=== PATIENT | male | born 1965 | race Caucasian/White ===

== ENCOUNTER 2019-02-02 17:22 | Inpatient (IN) | payer OTHER ==
[~2019-02-02] VITALS: Ht 170.2 cm; Wt 71.2 kg
[2019-02-02 18:24] LABS: BASOPHIL % 0.1 % (0-2); PLATELET COUNT 343 x10^3mcL (130-400); RED CELL DISTRIBUTION WIDTH 13.1 % (11.5-14.5)
[2019-02-02 18:29] LABS: CARBON DIOXIDE 36.2 mmol/L (21-32); CHLORIDE SERUM 97 mmol/L (98-107); CREATININE SERUM 1.2 mg/dL (0.7-1.3); GFR1 > 60 mL/min; GLUCOSE SERUM 192 mg/dL (74-106); POTASSIUM SERUM 3.3 mmol/L (3.5-5.1); SODIUM SERUM 137 mmol/L (136-145)
[2019-02-02 18:34] LABS: ALKALINE PHOSPHATASE 107 U/L (46-116); ALT/SGPT 36 U/L (16-63); AST/SGOT 21 U/L (15-37); BILIRUBIN TOTAL 0.57 mg/dL (0.20-1.00); LIPASE 66 IU/L (73-393)
[2019-02-02 18:37] LABS: OSMOLALITY SERUM 295 mOsm/kg (278-298)
[2019-02-02 18:39] LABS: microscopic required? YES; urine erythrocyte 2+ (NEGATIVE)
[2019-02-02] MEDS ORDERED: METFORMIN HCL500 MG (21:19)
[2019-02-02] MEDS ORDERED: LISINOPRIL10 MG PO (21:19)
[2019-02-02] MEDS ORDERED: NOR5 PO (21:20)
[2019-02-02] MEDS ORDERED: GAS RELIEF80 MG PO (21:20)
[2019-02-02] MEDS ORDERED: LIPI20 PO (21:20)
[2019-02-02 22:03] VITALS: BP 123/64
[2019-02-02 22:10] VITALS: Ht 170.2 cm; Wt 71.2 kg
[2019-02-02 22:23] LABS: MAGNESIUM 1.9 mg/dL (1.8-2.4); PHOSPHOROUS 4.2 mg/dL (2.5-4.9)
[2019-02-02 22:24] LABS: CHOLESTEROL/HDL RATIO 3.3
[2019-02-03 06:11] VITALS: BP 126/73
[2019-02-03 06:19] LABS: PLATELET COUNT 288 x10^3mcL (130-400); RED CELL DISTRIBUTION WIDTH 13.4 % (11.5-14.5)
[2019-02-03 07:00] LABS: CARBON DIOXIDE 30.2 mmol/L (21-32); CHLORIDE SERUM 105 mmol/L (98-107); GFR1 > 60 mL/min; GLUCOSE SERUM 115 mg/dL (74-106); MAGNESIUM 1.9 mg/dL (1.8-2.4); PHOSPHOROUS 3.4 mg/dL (2.5-4.9); POTASSIUM SERUM 3.8 mmol/L (3.5-5.1); SODIUM SERUM 142 mmol/L (136-145)
[2019-02-03 07:01] LABS: BASOPHIL % 0 % (0-2)
[2019-02-03 08:28] VITALS: BP 128/70
[2019-02-03 12:33] VITALS: BP 128/68
[2019-02-03 16:04] VITALS: BP 118/72
[2019-02-03 20:46] VITALS: BP 105/62
[2019-02-04 06:00] VITALS: BP 121/66
[2019-02-04 06:36] LABS: CALCIUM 8.3 mg/dL (8.5-10.1); CARBON DIOXIDE 27.7 mmol/L (21-32); CHLORIDE SERUM 105 mmol/L (98-107); CREATININE SERUM 0.9 mg/dL (0.7-1.3); GFR1 > 60 mL/min; GLUCOSE SERUM 94 mg/dL (74-106); MAGNESIUM 1.9 mg/dL (1.8-2.4); PHOSPHOROUS 2.3 mg/dL (2.5-4.9); POTASSIUM SERUM 3.6 mmol/L (3.5-5.1); SODIUM SERUM 141 mmol/L (136-145)
[2019-02-04 06:57] LABS: BASOPHIL % 0.4 % (0-2); PLATELET COUNT 249 x10^3mcL (130-400); RED CELL DISTRIBUTION WIDTH 13.3 % (11.5-14.5)
[2019-02-04 09:19] VITALS: BP 107/61
[2019-02-04 15:22] VITALS: BP 107/61
== END 2019-02-04 15:55 | disposition short-term general hospital (02) | DRG 389 ==
LOC: ED 17:22 → MU 21:10
PROVIDERS: Emergency Medicine; ADMIT Family Medicine
DX: K56.600 Partial intestinal obstruction, unspecified as to cause (principal); N39.0 Urinary tract infection, site not specified; E87.4 Mixed disorder of acid-base balance; J98.11 Atelectasis; E86.0 Dehydration; R11.2 Nausea with vomiting, unspecified; E87.6 Hypokalemia; K76.9 Liver disease, unspecified; I10 Essential (primary) hypertension; E78.5 Hyperlipidemia, unspecified; Z68.24 Body mass index [BMI] 24.0-24.9, adult; Z85.46 Personal history of malignant neoplasm of prostate; Z85.038 Personal history of other malignant neoplasm of large intestine; Z90.49 Acquired absence of other specified parts of digestive tract; Z93.3 Colostomy status
CPT/HCPCS: 82962; 94150; J0696; J0744; J2270; J2405; J3480; J3490; J7030; Q0092; Q9967